=== PATIENT | male | born 1960 | race Caucasian/White ===

== ENCOUNTER 2022-05-05 12:06 | Emergency (ER) | payer OTHER, SELFPAY ==
--- NOTE | 2022-05-05 12:08 | ED.EYEPROB ---
HPI - Eye Problem General Chief complaint: Eye Problems Stated complaint: right eye Time Seen by Provider: 05/05/22 12:07 Source: patient Mode of arrival: ambulatory Limitations: no limitations History of Present Illness HPI Narrative: Mr. Kwong is a 62-year-old male patient presenting to the clinic today with complaints of right eye issues x3 to 4 days. He reports he noticed his eyes draining/crusting this morning. He reports that he is having some pain to the right lower eyelid as well as some itching. He denies any fever or chills. Is tender Related Data Allergies Allergy/AdvReac Type Severity Reaction Status Date / Time No Known Allergies Allergy Verified 05/05/22 12:22 Review of Systems Review of Systems: Pertinent positives per HPI. Patient denies any fever, chills, rash, headache, visual changes, dizziness, cough, runny nose, sore throat, shortness of breath, chest pain, palpitations, nausea, vomiting, diarrhea, constipation, abdominal pain, or any urinary issues. PMFSH Comments At the time of my signature, I reviewed and agree with the nursing past medical, surgical, social, and family history. There is no relevant family history pertinent to the patient complaint. Exam Narrative: General: Well-developed, well nourished, in no apparent distress Head: Normocephalic, atraumatic Eyes: Pupils equally round and reactive to light bilaterally, EOM intact, left sclera and conjunctive clear, right sclera clear and conjunctive injected with swelling to the right lower eyelid with noted pustule with marble size induration to the right lateral eyelid with redness and swelling extending from the eyelid to the top of the cheekbone, left lids normal Ears: TMs intact and clear, ear canals clear, no drainage, grossly hearing normal. Nose: Nares patent, no discharge, no inflammation, no sinus tenderness. Mouth: Oropharynx without lesions or masses, good dentition, MMM. Neck: Supple, trachea midline, no enlargement of anterior or posterior cervical nodes, no thyroid masses or goiter palpable. Cardio: Regular rate and rhythm, s1 and s2 normal, no murmur appreciated. Resp: Clear to auscultation bilaterally anteriorly and posteriorly, no rhonchi, rales, wheezing or rubs Course Course Emergency Course: Portions of this record may have been created with voice recognition software. Level of Care: Express Care Visit Vital Signs Vital signs: Vital Signs Temperature 37.5 C 05/05/22 12:13 Pulse Rate 81 05/05/22 12:13 Respiratory Rate 16 05/05/22 12:13 Blood Pressure 157/90 H 05/05/22 12:13 Pulse Oximetry 98 05/05/22 12:13 Oxygen Delivery Room Air 05/05/22 12:13 Temperature 37.5 C 05/05/22 12:13 Pulse Rate 81 05/05/22 12:13 Respiratory Rate 16 05/05/22 12:13 Blood Pressure 157/90 H 05/05/22 12:13 Pulse Oximetry 98 05/05/22 12:13 Oxygen Delivery Room Air 05/05/22 12:13 Vital signs reviewed MDM - Eye Problem MDM Narrative Medical decision making narrative: At the time of visit patient is resting comfortably on the exam table. I suspect the patient has an infected stye to the right eye that is causing some mild cellulitis. Prescription for oral Bactrim and Polytrim Eyedrops was given to the patient. Supportive measures were discussed with the patient he voiced understanding of discharge instructions and agrees to treatment plan. Differential Diagnosis Differential diagnosis: Likely conjunctivitis and other (Cellulitis, internal stye) Discharge Plan Discharge Clinical Impression: Internal hordeolum of right eye Qualifiers: Eyelid: lower Qualified Code(s): H00.022 - Hordeolum internum right lower eyelid Patient Disposition: Home, Self-Care Condition: Stable Instructions: Antibiotic Form, ye (ED) Additional Instructions: May apply warm compresses to the affected area Instill polymyxin eyedrops as prescribed Take Bactrim DS as prescribed May take Tylenol/Motrin a
[2022-05-05 12:13] VITALS: BP 157/90; PULSE 81; RESP 16; TEMP 37.5; O2SAT 98
== END 2022-05-05 12:30 | disposition home or self-care (01) ==
PROVIDERS: Emergency Provider Nurse Practitioner Family; PCP Family Medicine
DX: H00.022 Hordeolum internum right lower eyelid (principal)
CPT/HCPCS: 99213; G0463